=== PATIENT | female | born 1975 | race Two or more races ===

== ENCOUNTER → 2025-01-04 | Outpatient (CLI) | payer MEDICAID, SELFPAY ==
--- NOTE | 2025-01-04 14:00 | XR_ITS ---
Examination: Screening digital mammography, bilateral Computer aided detection 3-D breast Tomosynthesis, bilateral Date and time of exam: January 04, 2025 1413 hours Indication: Screening Technique: Nonmagnified MLO, CC views of the breasts to been obtained, reconstructed from 3-D Tomosynthesis images. R2 computer aided detection program utilized for evaluation of suspicious masses and/or abnormal calcifications. 3-D Tomosynthesis images obtained. Findings: The breasts are heterogeneously dense, which may obscure small masses Multiple fairly prominent bilateral axillary lymph nodes No suspicious breast masses Impression: BI-RADS Category 0: Incomplete: Need additional imaging evaluation Multiple bilateral fairly prominent axillary lymph nodes, recommend bilateral breast axillary sonography follow-up
== END | disposition home or self-care (01) ==
PROVIDERS: PCP Nurse Practitioner Family; Referring Provider Nurse Practitioner Family; Visit Provider Nurse Practitioner Family
DX: Z12.31 Encounter for screening mammogram for malignant neoplasm of breast (principal); R92.8 Other abnormal and inconclusive findings on diagnostic imaging of breast
CPT/HCPCS: 77063; 77067

== ENCOUNTER → 2025-03-04 | Outpatient (CLI) | payer MEDICAID, SELFPAY ==
--- NOTE | 2025-03-04 12:30 | XR_ITS ---
Examination: Breast ultrasound complete, bilateral Date and time of exam: March 04, 2025 1212 hours INDICATIONS: Prominent bilateral axillary lymph nodes on mammogram January 04, 2025 Technique: Real-time grayscale ultrasonographic imaging bilateral breasts, including all 4 quadrants as well as nipple retroareolar and axillary regions. Findings: Sonographic images right breast No cystic or solid mass 3.3 cm probably benign right axillary lymph node Sonographic images left breast 2:00 cyst 5 x 4 mm Retroareolar mass within the duct 4 x 3 mm 2.6 cm left axillary lymph node IMPRESSION: BI-RADS Category 3: Probably benign findings One additional 6 month bilateral breast sonography follow-up is recommended
== END | disposition home or self-care (01) ==
PROVIDERS: PCP Nurse Practitioner Family; Referring Provider Nurse Practitioner Family; Visit Provider Nurse Practitioner Family
DX: L03.122 Acute lymphangitis of left axilla (principal)
CPT/HCPCS: 76641